=== PATIENT | female | born 2000 ===

== ENCOUNTER → 2022-05-12 | Emergency (ER) | payer SELFPAY ==
[~2022-05-12] MED LIST: NEOMY 3.5 MG/BACIT 400 UNITS/POLY B 5000 UNITS/GM OINT PACKET TP STA
[2022-05-12 17:51] VITALS: BP 120/84
--- NOTE | 2022-05-12 18:30 | XRay Report ---
RIGHT FOOT 3 VIEW(S) INDICATION / CLINICAL INFORMATION: injury COMPARISON: None available. FINDINGS: BONES / JOINT(S): No acute fracture or subluxation. No significant arthritis. Type III os navicularis SOFT TISSUES: No significant abnormality. ADDITIONAL FINDINGS: None. Signer Name: Hayes Laura DO Signed: 05/12/2022 6:26 PM Workstation Name: [id number]
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
== END | disposition home or self-care (01) ==
LOC: ED 17:39
DX: S90.31XA Contusion of right foot, initial encounter (principal); X58.XXXA Exposure to other specified factors, initial encounter; Y93.89 Activity, other specified; Y92.89 Other specified places as the place of occurrence of the external cause; Y99.8 Other external cause status
CPT/HCPCS: 99283